=== PATIENT | male | born 1960 | race Asian ===

== ENCOUNTER → 2017-07-08 | Outpatient (CLI) | payer OTHER ==
[~2017-07-08] MED LIST: BYSTOLIC 5 MG5 M1 PO; ERYTHROMYCIN E3.5 G2 TOP; LISINOPRIL10 MG PO; LOPRESSOR25 PO; NOHOMEMEDICATIONS; NORCO 5-325 TA1 EAC1 PO; PRINIVIL20 MG PO
== END ==
LOC: M.CT 16:00
DX: H53.8 Other visual disturbances (principal); H91.90 Unspecified hearing loss, unspecified ear; R41.3 Other amnesia

== ENCOUNTER 2017-09-14 23:13 | Emergency (ER) | payer OTHER ==
[~2017-09-14] VITALS: Ht 172.7 cm; Wt 61.7 kg
[~2017-09-14 23:13] MED LIST changes: -NOHOMEMEDICATIONS; -NORCO 5-325 TA1 EAC1 PO; -PRINIVIL20 MG PO
[2017-09-14] MEDS ORDERED: NOHOMEMEDICATIONS (23:26)
[2017-09-15 00:01] LABS: ABSOLUTE EOSINOPHILS 0.1 thou/uL (0.0-0.7); ABSOLUTE LYMPHOCYTES 1.1 thou/uL (0.8-5.3); ABSOLUTE MONOCYTES 0.6 thou/uL (0.0-1.2); ABSOLUTE NEUTROPHILS 3.1 thou/uL (1.6-8.1); BASOPHILS 0.2 %; EOSINOPHILS 2.2 %; HEMATOCRIT 39.3 % (42.0-52.0); HEMOGLOBIN 13.1 gm/dL (14.0-18.0); LYMPHOCYTES 22.9 %; MCH 32.3 pg (26.0-34.0); MCHC 33.4 g/dL (28.0-37.0); MCV 96.7 fL (80.0-100.0); MONOCYTES 12.2 %; MPV 6.4 fl. (7.2-11.1); NUCLEATED RBCS 0 /100WBC; PLATELET COUNT* 246 thou/uL (150-400); POLYS 62.5 %; RBC 4.06 mil/uL (4.50-6.00); RDW-CV 14.6 % (10.5-14.5)
[2017-09-15 00:06] LABS: CALCIUM 8.7 mg/dL (8.5-10.1); CREATININE 0.8 mg/dL (0.6-1.3); POTASSIUM 3.3 mmol/L (3.5-5.1)
[2017-09-15 00:10] LABS: ALBUMIN 3.9 g/dL (3.4-5.0); TOTAL BILIRUBIN 0.6 mg/dL (<0.1-1.0); TOTAL PROTEIN 6.8 g/dL (6.4-8.2)
[2017-09-15] MEDS ORDERED: PRINIVIL20 MG PO (01:04)
[2017-09-15 01:23] VITALS: BP 158/81
--- NOTE | 2017-09-15 15:23 | EKG ---
[place] [address] ELECTROCARDIOGRAM REPORT Name: ALEXEY ARDON Room: [facility]#: [id number] Admission: 09/14/17 Attend Phys: Discharge: 09/15/17 Date of : 64 Report #: [id number] THIS REPORT FOR: //name// 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 : 1960 Requested By: Abbey Garcia Order Number: [id number] MD: Erlin Cast Measurements Intervals [place] Rate: 82 P: 47 VT: 164 QRS: -33 QRSD: 104 T: 55 QT: 391 QTc: 457 Interpretive Statements Sinus rhythm Left axis deviation Abnormal R-wave progression, early transition Compared to ECG 03/11/2017 10:55:10 Sinus tachycardia no longer present Electronically Signed On 09-15-2017 15:23:23 CDT by Erlin Cast [email or web address] <ELECTRONICALLY SIGNED> By: Erlin Cast MD, [facility] 09/15/17 1523 232 24 Erlin Cast MD, [facility] /EPI
== END 2017-09-15 01:25 | disposition home or self-care (01) ==
LOC: M.ERS 23:13
PROVIDERS: Emergency Medicine
DX: I16.0 Hypertensive urgency (principal); F17.210 Nicotine dependence, cigarettes, uncomplicated

== ENCOUNTER 2017-11-23 13:32 | Emergency (ER) | payer OTHER ==
[~2017-11-23] VITALS: Ht 172.7 cm; Wt 59.9 kg
[~2017-11-23 13:32] MED LIST changes: +NOHOMEMEDICATIONS; +PRINIVIL20 MG PO
[2017-11-23] MEDS ORDERED: NORCO 5-325 TA1 EAC1 PO (15:42)
[2017-11-23 16:08] VITALS: BP 146/80
== END 2017-11-23 16:10 | disposition home or self-care (01) ==
LOC: M.ERS 13:32
DX: S32.008A Other fracture of unspecified lumbar vertebra, initial encounter for closed fracture (principal); S16.1XXA Strain of muscle, fascia and tendon at neck level, initial encounter; S00.93XA Contusion of unspecified part of head, initial encounter; I10 Essential (primary) hypertension; F17.210 Nicotine dependence, cigarettes, uncomplicated; W01.0XXA Fall on same level from slipping, tripping and stumbling without subsequent striking against object, initial encounter; Y93.89 Activity, other specified; Y92.090 Kitchen in other non-institutional residence as the place of occurrence of the external cause; Y99.8 Other external cause status

== ENCOUNTER 2018-05-05 14:45 | Emergency (ER) | payer OTHER ==
[~2018-05-05] VITALS: Ht 152.4 cm; Wt 59.0 kg
[~2018-05-05 14:45] MED LIST changes: +NORCO 5-325 TA1 EAC1 PO
[2018-05-05] MEDS ORDERED: BYSTOLIC 5 MG5 M1 PO (14:58)
[2018-05-05 15:10] LABS: ABSOLUTE BASOPHILS 0.1 thou/uL (0.0-0.2); ABSOLUTE MONOCYTES 0.6 thou/uL (0.0-1.2); ABSOLUTE NEUTROPHILS 3.8 thou/uL (1.6-8.1); BASOPHILS 2.4 %; EOSINOPHILS 0.4 %; HEMOGLOBIN 14.2 gm/dL (14.0-18.0); LYMPHOCYTES 18.5 %; MCH 32.1 pg (26.0-34.0); MCHC 33.9 g/dL (28.0-37.0); MCV 94.7 fL (80.0-100.0); MONOCYTES 11.5 %; MPV 6.7 fl. (7.2-11.1); NUCLEATED RBCS 0 /100WBC; PLATELET COUNT* 266 thou/uL (150-400); POLYS 67.2 %; RBC 4.44 mil/uL (4.50-6.00); RDW-CV 15.1 % (10.5-14.5); WBC 5.6 thou/uL (4.0-11.0)
[2018-05-05 15:15] LABS: ANION GAP 14 mmol/L (7-16); BUN 13 mg/dL (7-18); CALCIUM 9.3 mg/dL (8.5-10.1); CHLORIDE 97 mmol/L (98-107); CO2 27 mmol/L (21-32); CREATININE 0.8 mg/dL (0.6-1.3); GLUCOSE 101 mg/dL (70-99); POTASSIUM 3.9 mmol/L (3.5-5.1); SODIUM 138 mmol/L (136-145)
[2018-05-05 15:22] LABS: ALBUMIN 4.7 g/dL (3.4-5.0); ALKALINE PHOSPHATASE 57 U/L (46-116); MAGNESIUM 1.9 mg/dL (1.8-2.4); SGOT 60 U/L (15-37); SGPT 30 U/L (30-65); TOTAL BILIRUBIN 0.6 mg/dL (<0.1-1.0); TOTAL PROTEIN 8.1 g/dL (6.4-8.2); TROPONIN-I LEVEL <0.06 ng/mL (<0.06)
[2018-05-05 15:44] LABS: BE 1.8 mmol/L (-2 to +3); HCO3 25.7 mmol/L (22.0-26.0); pH 7.448 (7.340-7.450)
[2018-05-05 16:08] LABS: INFLUENZA A ANTIGEN None Detected (None Detect); INFLUENZA B ANTIGEN None Detected (None Detect)
[2018-05-05 16:08] LABS: URINE BILIRUBIN NEGATIVE (Negative); URINE BLOOD NEGATIVE (Negative); URINE CLARITY CLEAR; URINE COLOR YELLOW; URINE GLUCOSE-RANDOM NEGATIVE (Negative); URINE KETONES 1+ (Negative); URINE LEUKOCYTES-REFLEX NEGATIVE (Negative); URINE NITRITE-REFLEX NEGATIVE (Negative); URINE PROTEIN NEGATIVE (Negative); URINE UROBILINOGEN 0.2 E.U./dl (0.2-1.0)
[2018-05-05 17:53] LABS: INR 0.9; PROTIME 8.9 Seconds (9.20-11.50)
[2018-05-05 19:11] VITALS: BP 157/78
--- NOTE | 2018-05-06 16:51 | EKG ---
[place] [address] ELECTROCARDIOGRAM REPORT Name: ARDONALEXEY Arrieta Room: [facility]#: [id number] Admission: 05/05/18 Attend Phys: Discharge: 05/05/18 Date of : 64 Report #: [id number] THIS REPORT FOR: //name// [facility] ED Test Date: 2018-05-05 Test Time: 14:48:43 Pat Name: ALEXEY ARDON Department: Room: Gender: M Flying Teacher: MARJORIE : 1960 Requested By: Edda Weeks Order Number: [id number] MD: Bryan Link Measurements Intervals [place] Rate: 76 P: 38 VT: 157 QRS: -23 QRSD: 100 T: 50 QT: 407 QTc: 458 Interpretive Statements Sinus rhythm Possible left atrial enlargement Borderline left axis deviation Compared to ECG 09/14/2017 23:25:49 No significant changes Electronically Signed On 05-06-2018 16:51:30 DIRECTOR INSTRUMENTATION by Bryan Link [email or web address] <ELECTRONICALLY SIGNED> By: Bryan Link MD, [facility] 05/06/18 1651 1448 1448 Bryan Link MD, [facility] /EPI
== END 2018-05-05 19:12 | disposition home or self-care (01) ==
LOC: M.ERS 14:45
PROVIDERS: Personal Emergency Response Attendant
DX: R07.89 Other chest pain (principal); R11.2 Nausea with vomiting, unspecified; I10 Essential (primary) hypertension; F17.210 Nicotine dependence, cigarettes, uncomplicated; Z88.8 Allergy status to other drugs, medicaments and biological substances

== ENCOUNTER 2018-09-17 16:48 | Emergency (ER) | payer OTHER ==
[~2018-09-17] VITALS: Ht 170.2 cm; Wt 59.9 kg
[2018-09-17 18:02] VITALS: BP 112/67
== END 2018-09-17 18:04 | disposition home or self-care (01) ==
LOC: M.ERS 16:48
DX: T26.12XA Burn of cornea and conjunctival sac, left eye, initial encounter (principal); F17.210 Nicotine dependence, cigarettes, uncomplicated; I10 Essential (primary) hypertension; Z88.8 Allergy status to other drugs, medicaments and biological substances; X58.XXXA Exposure to other specified factors, initial encounter; Y92.89 Other specified places as the place of occurrence of the external cause; Y99.0 Civilian activity done for income or pay; Y99.8 Other external cause status

== ENCOUNTER 2019-04-30 20:36 | Emergency (ER) | payer OTHER ==
[~2019-04-30] VITALS: Ht 172.7 cm; Wt 61.7 kg
[2019-04-30] MEDS ORDERED: NORVASC10 MG PO (21:17)
[2019-04-30 21:21] LABS: ABSOLUTE BASOPHILS 0.1 thou/uL (0.0-0.2); ABSOLUTE EOSINOPHILS 0.2 thou/uL (0.0-0.7); ABSOLUTE LYMPHOCYTES 1.6 thou/uL (0.8-5.3); ABSOLUTE MONOCYTES 0.5 thou/uL (0.0-1.2); ABSOLUTE NEUTROPHILS 4.1 thou/uL (1.6-8.1); BASOPHILS 1.3 %; EOSINOPHILS 2.5 %; HEMATOCRIT 40.3 % (42.0-52.0); HEMOGLOBIN 13.4 gm/dL (14.0-18.0); LYMPHOCYTES 25.3 %; MCH 27.8 pg (26.0-34.0); MCHC 33.2 g/dL (28.0-37.0); MCV 83.6 fL (80.0-100.0); MONOCYTES 7.4 %; NUCLEATED RBCS 0 /100WBC; PLATELET COUNT* 302 thou/uL (150-400); POLYS 63.5 %; RBC 4.82 mil/uL (4.50-6.00); RDW-CV 14.1 % (10.5-14.5); WBC 6.5 thou/uL (4.0-11.0)
[2019-04-30 21:32] LABS: CALCIUM 8.6 mg/dL (8.5-10.1); CREATININE 0.9 mg/dL (0.6-1.3); POTASSIUM 3.6 mmol/L (3.5-5.1)
[2019-04-30 21:34] LABS: APTT 28.8 Seconds (25.0-31.3)
[2019-04-30 21:45] LABS: ALBUMIN 3.7 g/dL (3.4-5.0); CK-MB MASS 0.8 ng/mL (<0.5-3.6); TOTAL BILIRUBIN 0.2 mg/dL (<0.1-1.0); TOTAL PROTEIN 7.1 g/dL (6.4-8.2)
[2019-04-30 22:32] VITALS: BP 135/75
--- NOTE | 2019-05-01 12:34 | EKG ---
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
== END 2019-04-30 22:34 | disposition home or self-care (01) ==
LOC: M.ERS 20:36
PROVIDERS: Family Medicine
DX: I10 Essential (primary) hypertension (principal); R07.89 Other chest pain; R42 Dizziness and giddiness; F17.210 Nicotine dependence, cigarettes, uncomplicated; Z88.8 Allergy status to other drugs, medicaments and biological substances

== ENCOUNTER 2019-07-12 21:20 | Emergency (ER) | payer OTHER ==
[~2019-07-12] VITALS: Ht 172.7 cm; Wt 65.8 kg
[~2019-07-12 21:20] MED LIST changes: +NORVASC10 MG PO
[2019-07-12 21:52] LABS: ABSOLUTE BASOPHILS 0.1 thou/uL (0.0-0.2); ABSOLUTE EOSINOPHILS 0.3 thou/uL (0.0-0.7); ABSOLUTE LYMPHOCYTES 1.6 thou/uL (0.8-5.3); ABSOLUTE MONOCYTES 0.5 thou/uL (0.0-1.2); ABSOLUTE NEUTROPHILS 2.6 thou/uL (1.6-8.1); BASOPHILS 2.1 %; EOSINOPHILS 5.1 %; HEMATOCRIT 42.6 % (42.0-52.0); HEMOGLOBIN 14.3 gm/dL (14.0-18.0); LYMPHOCYTES 31.7 %; MCH 29.5 pg (26.0-34.0); MCHC 33.7 g/dL (28.0-37.0); MCV 87.7 fL (80.0-100.0); MONOCYTES 10.1 %; MPV 6.6 fl. (7.2-11.1); NUCLEATED RBCS 0 /100WBC; PLATELET COUNT* 320 thou/uL (150-400); RBC 4.86 mil/uL (4.50-6.00); RDW-CV 16.3 % (10.5-14.5)
[2019-07-12 21:54] LABS: CALCIUM 8.4 mg/dL (8.5-10.1); POTASSIUM 3.7 mmol/L (3.5-5.1)
[2019-07-12 21:58] LABS: INR 0.9; PROTIME 9.5 Seconds (9.20-11.50)
[2019-07-12 21:59] LABS: ALBUMIN 3.8 g/dL (3.4-5.0); TOTAL BILIRUBIN 0.3 mg/dL (<0.1-1.0); TOTAL PROTEIN 6.9 g/dL (6.4-8.2)
[2019-07-12] MEDS ORDERED: CYCLOBENZAPRINE5 MG PO (23:52)
[2019-07-12] MEDS ORDERED: NAPROSYN500 MG PO (23:52)
[2019-07-13 00:03] VITALS: BP 131/62
--- NOTE | 2019-07-13 09:13 | EKG ---
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
== END 2019-07-13 00:03 | disposition home or self-care (01) ==
LOC: M.ERS 21:20
PROVIDERS: Personal Emergency Response Attendant
DX: R07.89 Other chest pain (principal); R73.9 Hyperglycemia, unspecified; I10 Essential (primary) hypertension; F17.210 Nicotine dependence, cigarettes, uncomplicated; Z88.8 Allergy status to other drugs, medicaments and biological substances

== ENCOUNTER 2019-10-29 09:10 | Emergency (ER) | payer OTHER ==
[~2019-10-29] VITALS: Ht 170.2 cm; Wt 59.0 kg
[~2019-10-29 09:10] MED LIST changes: +CYCLOBENZAPRINE5 MG PO; +NAPROSYN500 MG PO
[2019-10-29 09:44] LABS: ABSOLUTE BASOPHILS 0.1 thou/uL (0.0-0.2); ABSOLUTE LYMPHOCYTES 0.5 thou/uL (0.8-5.3); ABSOLUTE MONOCYTES 0.5 thou/uL (0.0-1.2); ABSOLUTE NEUTROPHILS 6.5 thou/uL (1.6-8.1); BASOPHILS 1.3 %; EOSINOPHILS 0.2 %; HEMATOCRIT 38.6 % (42.0-52.0); HEMOGLOBIN 12.7 gm/dL (14.0-18.0); LYMPHOCYTES 7.1 %; MCH 32.2 pg (26.0-34.0); MCV 97.5 fL (80.0-100.0); MONOCYTES 6.8 %; MPV 6.8 fl. (7.2-11.1); NUCLEATED RBCS 0 /100WBC; PLATELET COUNT* 276 thou/uL (150-400); POLYS 84.6 %; RBC 3.96 mil/uL (4.50-6.00); RDW-CV 16.1 % (10.5-14.5); WBC 7.7 thou/uL (4.0-11.0)
[2019-10-29 09:53] LABS: APTT 24.7 Seconds (25.0-31.3); INR 0.9; PROTIME 8.9 Seconds (9.20-11.50)
[2019-10-29 10:01] LABS: CALCIUM 8.2 mg/dL (8.5-10.1); CREATININE 0.8 mg/dL (0.6-1.3); POTASSIUM 3.3 mmol/L (3.5-5.1)
[2019-10-29 10:17] LABS: ALBUMIN 3.8 g/dL (3.4-5.0); CK-MB MASS 0.8 ng/mL (<0.5-3.6); MAGNESIUM 1.7 mg/dL (1.8-2.4); TOTAL BILIRUBIN 0.4 mg/dL (<0.1-1.0); TOTAL PROTEIN 6.8 g/dL (6.4-8.2)
[2019-10-29 12:17] VITALS: BP 134/61
--- NOTE | 2019-10-29 12:19 | EKG ---
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: [facility] : 1960 Requested By: Jacoby Jacobo Order Number: [id number] MD: Erlin Cast Measurements Intervals [place] Rate: 78 P: 65 MD: 163 QRS: -16 QRSD: 108 T: 40 QT: 439 QTc: 501 Interpretive Statements Sinus rhythm Probable left atrial enlargement Borderline left axis deviation Prolonged QT interval Compared to ECG 07/12/2019 21:24:26 Prolonged QT interval now present Electronically Signed On 10-29-2019 12:19:13 CDT by Elrin Cast [email or web address] <ELECTRONICALLY SIGNED> By: Erlin Cast MD, [facility] 10/29/19 1219 1 1 Erlin Cast MD, [facility] /EPI
== END 2019-10-29 12:17 | disposition home or self-care (01) ==
LOC: M.ERS 09:10
PROVIDERS: Emergency Medicine
DX: F41.9 Anxiety disorder, unspecified (principal); R07.89 Other chest pain; H53.8 Other visual disturbances; I10 Essential (primary) hypertension; Z88.8 Allergy status to other drugs, medicaments and biological substances; Z79.899 Other long term (current) drug therapy

== ENCOUNTER 2019-11-27 16:12 | Emergency (ER) | payer OTHER ==
[~2019-11-27] VITALS: Ht 172.7 cm; Wt 59.0 kg
[2019-11-27 18:11] VITALS: BP 142/75
== END 2019-11-27 18:12 | disposition home or self-care (01) ==
LOC: M.ERS 16:12
DX: S61.012A Laceration without foreign body of left thumb without damage to nail, initial encounter (principal); I10 Essential (primary) hypertension; F17.210 Nicotine dependence, cigarettes, uncomplicated; Z88.8 Allergy status to other drugs, medicaments and biological substances; W26.8XXA Contact with other sharp object(s), not elsewhere classified, initial encounter; Y93.89 Activity, other specified; Y92.89 Other specified places as the place of occurrence of the external cause; Y99.0 Civilian activity done for income or pay

== ENCOUNTER 2020-01-01 04:30 | Emergency (ER) | payer OTHER ==
[~2020-01-01] VITALS: Ht 170.2 cm; Wt 59.0 kg
[2020-01-01 06:16] VITALS: BP 146/75
--- NOTE | 2020-01-01 09:34 | EKG ---
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: CHANDNI : 1960 Requested By: Abbey Garcia Order Number: [id number] MD: Dario Núñez Measurements Intervals [place] Rate: 60 P: -13 NV: 155 QRS: -19 QRSD: 108 T: 36 QT: 458 QTc: 458 Interpretive Statements Sinus rhythm Borderline left axis deviation Compared to ECG 10/29/2019 09:12:14 Prolonged QT interval no longer present Electronically Signed On 01-01-2020 9:34:53 CDT by Dario Núñez [email or web address] <ELECTRONICALLY SIGNED> By: Dario Núñez MD, [facility] 01/01/20 0934 0509 0509 Dario Núñez MD, [facility] /EPI
== END 2020-01-01 06:17 | disposition home or self-care (01) ==
LOC: M.ERS 04:30
DX: J06.9 Acute upper respiratory infection, unspecified (principal); Z20.828 Contact with and (suspected) exposure to other viral communicable diseases; I10 Essential (primary) hypertension; Z87.891 Personal history of nicotine dependence; Z88.8 Allergy status to other drugs, medicaments and biological substances

== ENCOUNTER 2020-04-28 15:35 | Emergency (ER) | payer OTHER ==
[~2020-04-28] VITALS: Ht 172.7 cm; Wt 55.9 kg
[2020-04-28 16:04] LABS: ABSOLUTE BASOPHILS 0.1 thou/uL (0.0-0.2); ABSOLUTE LYMPHOCYTES 0.5 thou/uL (0.8-5.3); ABSOLUTE MONOCYTES 0.6 thou/uL (0.0-1.2); ABSOLUTE NEUTROPHILS 4.7 thou/uL (1.6-8.1); EOSINOPHILS 0.1 %; HEMATOCRIT 38.4 % (42.0-52.0); HEMOGLOBIN 12.8 gm/dL (14.0-18.0); LYMPHOCYTES 8.8 %; MCHC 33.2 g/dL (28.0-37.0); MCV 99.3 fL (80.0-100.0); MONOCYTES 10.4 %; MPV 6.6 fl. (7.2-11.1); NUCLEATED RBCS 0 /100WBC; PLATELET COUNT* 237 thou/uL (150-400); POLYS 79.7 %; RBC 3.86 mil/uL (4.50-6.00); RDW-CV 14.7 % (10.5-14.5); WBC 5.9 thou/uL (4.0-11.0)
[2020-04-28 16:12] LABS: CALCIUM 9.1 mg/dL (8.5-10.1); CREATININE 0.9 mg/dL (0.6-1.3); POTASSIUM 4.1 mmol/L (3.5-5.1)
[2020-04-28 16:17] LABS: ALBUMIN 3.7 g/dL (3.4-5.0); TOTAL BILIRUBIN 0.3 mg/dL (<0.1-1.0)
[2020-04-28 17:04] LABS: INFLUENZA A ANTIGEN Negative (Negative); INFLUENZA B ANTIGEN Negative (Negative)
[2020-04-28] MEDS ORDERED: APAP W/CODEINE1 TA2 PO (17:18)
[2020-04-28] MEDS ORDERED: TESSALON PERLE100 MG PO (17:18)
[2020-04-28] MEDS ORDERED: ZPAK PO (17:18)
[2020-04-28] MEDS ORDERED: PREDNISONE 20 M20 MG PO (17:18)
[2020-04-28] MEDS ORDERED: PROAIR HFA8.5 GM INH (17:18)
[2020-04-28 17:34] VITALS: BP 139/76
== END 2020-04-28 17:35 | disposition home or self-care (01) ==
LOC: M.ERS 15:35
PROVIDERS: Physician Assistant
DX: U07.1 COVID-19 (principal); I10 Essential (primary) hypertension; Z79.899 Other long term (current) drug therapy; Z88.8 Allergy status to other drugs, medicaments and biological substances; Z87.891 Personal history of nicotine dependence

== ENCOUNTER 2020-11-13 17:57 | Emergency (ER) | payer OTHER ==
[~2020-11-13] VITALS: Ht 172.7 cm; Wt 59.0 kg
[~2020-11-13 17:57] MED LIST changes: +APAP W/CODEINE1 TA2 PO; +PREDNISONE 20 M20 MG PO; +PROAIR HFA8.5 GM INH; +TESSALON PERLE100 MG PO; +ZPAK PO
[2020-11-13 19:25] LABS: ABSOLUTE LYMPHOCYTES 0.6 thou/uL (0.8-5.3); ABSOLUTE MONOCYTES 0.7 thou/uL (0.0-1.2); ABSOLUTE NEUTROPHILS 3.1 thou/uL (1.6-8.1); BASOPHILS 0.3 %; EOSINOPHILS 0.8 %; HEMATOCRIT 37.8 % (42.0-52.0); HEMOGLOBIN 12.8 gm/dL (14.0-18.0); LYMPHOCYTES 14.2 %; MCH 31.6 pg (26.0-34.0); MCHC 33.7 g/dL (28.0-37.0); MCV 93.6 fL (80.0-100.0); MONOCYTES 15.7 %; MPV 6.7 fl. (7.2-11.1); NUCLEATED RBCS 0 /100WBC; PLATELET COUNT* 264 thou/uL (150-400); RBC 4.04 mil/uL (4.50-6.00); RDW-CV 14.9 % (10.5-14.5); WBC 4.4 thou/uL (4.0-11.0)
[2020-11-13 19:32] LABS: CALCIUM 8.3 mg/dL (8.5-10.1); CREATININE 0.8 mg/dL (0.6-1.3); POTASSIUM 4.2 mmol/L (3.5-5.1)
[2020-11-13 19:43] LABS: ALBUMIN 3.7 g/dL (3.4-5.0); TOTAL BILIRUBIN 0.4 mg/dL (<0.1-1.0); TOTAL PROTEIN 6.8 g/dL (6.4-8.2)
[2020-11-13 20:02] LABS: URINE BILIRUBIN NEGATIVE (Negative); URINE BLOOD NEGATIVE (Negative); URINE CLARITY CLEAR; URINE COLOR STRAW; URINE GLUCOSE-RANDOM 2+ (Negative); URINE KETONES NEGATIVE (Negative); URINE LEUKOCYTES-REFLEX NEGATIVE (Negative); URINE NITRITE-REFLEX NEGATIVE (Negative); URINE PROTEIN NEGATIVE (Negative); URINE SPECIFIC GRAVITY <= 1.005 (1.005-1.030); URINE UROBILINOGEN 0.2 E.U./dl (0.2-1.0)
[2020-11-13] MEDS ORDERED: NORVASC 2.5 MG2.5 MG PO (21:35)
[2020-11-13 21:51] VITALS: BP 141/70
--- NOTE | 2020-11-14 10:01 | EKG ---
[place] [address] ELECTROCARDIOGRAM REPORT Name: ALEXEY ARDON Room: [facility]#: [id number] Admission: 11/13/20 Attend Phys: Discharge: 11/13/20 Date of : 64 Date of Service: 11/13/201920 Report #: [id number] THIS REPORT FOR: //name// 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: DODD : 1960 Requested By: Harini Perry Order Number: [id number] MD: Erlin Cast Measurements Intervals [place] Rate: 59 P: 51 LA: 159 QRS: -18 QRSD: 116 T: 45 QT: 450 QTc: 446 Interpretive Statements Sinus rhythm Nonspecific intraventricular conduction delay Baseline wander in lead(s) V5 Compared to ECG 04/28/2020 15:48:46 rate has slowed Electronically Signed On 11-14-2020 10:01:44 CDT by Erlin Cast [email or web address] <ELECTRONICALLY SIGNED> By: Erlin Cast MD, FAC 11/14/20 1001 20 20 Erlin Cast MD, [facility] /EPI
== END 2020-11-13 21:52 | disposition home or self-care (01) ==
LOC: M.ERS 17:57
PROVIDERS: Physician Assistant
DX: I10 Essential (primary) hypertension (principal); D64.9 Anemia, unspecified; E11.9 Type 2 diabetes mellitus without complications; R53.81 Other malaise; Z88.8 Allergy status to other drugs, medicaments and biological substances; Z87.891 Personal history of nicotine dependence; Z20.822 Contact with and (suspected) exposure to COVID-19

== ENCOUNTER → 2020-11-16 | Outpatient (CLI) | payer OTHER ==
[~2020-11-16] MED LIST changes: +NORVASC 2.5 MG2.5 MG PO
== END ==
LOC: M.LAB 13:12
PROVIDERS: ATTEND Family Medicine
DX: Z12.5 Encounter for screening for malignant neoplasm of prostate (principal); Z00.01 Encounter for general adult medical examination with abnormal findings

== ENCOUNTER 2021-01-03 22:20 | Emergency (ER) | payer OTHER ==
[~2021-01-03] VITALS: Ht 170.2 cm; Wt 20.9 kg
[2021-01-03 22:56] LABS: CALCIUM 9.1 mg/dL (8.5-10.1); CREATININE 0.7 mg/dL (0.6-1.3); POTASSIUM 3.7 mmol/L (3.5-5.1)
[2021-01-03 23:00] LABS: ALBUMIN 4.3 g/dL (3.4-5.0); TOTAL BILIRUBIN 0.1 mg/dL (<0.1-1.0); TOTAL PROTEIN 7.6 g/dL (6.4-8.2)
[2021-01-03 23:13] LABS: ABSOLUTE BASOPHILS 0.1 thou/uL (0.0-0.2); ABSOLUTE EOSINOPHILS 0.2 thou/uL (0.0-0.7); ABSOLUTE LYMPHOCYTES 2.1 thou/uL (0.8-5.3); ABSOLUTE MONOCYTES 0.5 thou/uL (0.0-1.2); ABSOLUTE NEUTROPHILS 2.6 thou/uL (1.6-8.1); BASOPHILS 1.8 %; EOSINOPHILS 3.6 %; HEMATOCRIT 42.6 % (42.0-52.0); HEMOGLOBIN 14.3 gm/dL (14.0-18.0); LYMPHOCYTES 38.1 %; MCH 30.9 pg (26.0-34.0); MCHC 33.6 g/dL (28.0-37.0); MCV 91.8 fL (80.0-100.0); MONOCYTES 9.8 %; MPV 6.7 fl. (7.2-11.1); NUCLEATED RBCS 0 /100WBC; PLATELET COUNT* 285 thou/uL (150-400); POLYS 46.7 %; RBC 4.64 mil/uL (4.50-6.00); RDW-CV 13.5 % (10.5-14.5); WBC 5.5 thou/uL (4.0-11.0)
[2021-01-04 00:20] VITALS: BP 99/62
== END 2021-01-04 00:20 | disposition home or self-care (01) ==
LOC: M.ERS 22:20
PROVIDERS: Personal Emergency Response Attendant
DX: F10.129 Alcohol abuse with intoxication, unspecified (principal)